=== PATIENT | female | born 1945 | race Caucasian/White ===

== ENCOUNTER 2017-05-22 11:38 | Emergency (ER) | payer MEDICARE ==
[~2017-05-22] VITALS: Ht 157.5 cm; Wt 97.5 kg
[2017-05-22] MEDS ORDERED: SODIUM CHLORIDE 0.9% 1000ML 1,000 ML IV SCH (14:30)
[2017-05-22] MEDS ORDERED: TAMIFLU75 MG PO (15:53)
[2017-05-22 18:33] VITALS: BP 128/67
[2017-05-23] MEDS ORDERED: NORVASC5 MG PO (22:27)
[2017-05-23] MEDS ORDERED: COUMADIN2.5 MG PO (22:59)
[2017-05-23] MEDS ORDERED: LIPITOR20 MG (22:59)
[2017-05-23] MEDS ORDERED: TOPROL XL25 MG PO (22:59)
== END 2017-05-22 14:10 | disposition home or self-care (01) ==
LOC: FSED 11:38
DX: R07.89 Other chest pain (principal); R05 Cough; J11.1 Influenza due to unidentified influenza virus with other respiratory manifestations; I10 Essential (primary) hypertension; E78.5 Hyperlipidemia, unspecified; M79.669 Pain in unspecified lower leg
CPT/HCPCS: 99284

== ENCOUNTER 2017-05-23 22:22 | Emergency (ER) | payer MEDICARE ==
[~2017-05-23] VITALS: Ht 160 cm; Wt 98.0 kg
[~2017-05-23 22:22] MED LIST: TAMIFLU75 MG PO
[2017-05-23] MEDS ORDERED: NORVASC5 MG PO (22:27)
[2017-05-23] MEDS ORDERED: TOPROL XL25 MG PO (22:59)
[2017-05-23] MEDS ORDERED: LIPITOR20 MG (22:59)
[2017-05-23] MEDS ORDERED: COUMADIN2.5 MG PO (22:59)
[2017-05-23] MEDS ORDERED: CLONIDINE HCL 0.1 MG TAB PO ONE (23:00)
[2017-05-23] MEDS ORDERED: DIPHENHYDRAMINE HCL INJ 50 MG/ML VIAL IM ONE (23:00)
== END 2017-05-23 23:36 | disposition home or self-care (01) ==
LOC: FSED 22:22
DX: R05 Cough (principal); J10.1 Influenza due to other identified influenza virus with other respiratory manifestations; I10 Essential (primary) hypertension
CPT/HCPCS: 96372; 99282; J1200

== ENCOUNTER 2017-05-26 11:50 | Observation (INO) | payer MEDICARE ==
[~2017-05-26] VITALS: Ht 157.5 cm; Wt 98.0 kg
[~2017-05-26 11:50] MED LIST changes: +COUMADIN2.5 MG PO; +LIPITOR20 MG; +NORVASC5 MG PO; +TOPROL XL25 MG PO
--- OUTSIDE RECORDS SUMMARY | 2017-05-26 11:52 | XMS REPORT | Continuity of Care Document ---
Author Author [facility] Organization [facility] Address [address] [place] [address] Phone Unavailable Care Team Providers Care Adjunct Professor Name Role Phone NONSTAFF PCP Unavailable Insurance Providers Guarantor Kong Thomas Address [address] [address] Email [email or web address] Payer [employer] Medicare Advantage Policy Number [id number] Subscriber's Name Kong Thomas Relationship 18 Self / Same As Patient Advance Directives Directive Response Recorded Date/Time Does the patient have an advance directive? No 05/22/17 11:44am Problems No problem information available. Medications Current Home Medications Medication Dose Units Route Directions Days Qty Instructions Start Date Amlodipine Besylate (Norvasc) 5 Mg Tab 5 Mg Oral Daily 30 Tab Atorvastatin Calcium (Lipitor) 20 Mg Tablet 20 Mg Daily 30 Tab Metoprolol Succinate (Toprol Xl) 25 Mg Tab.er.24h 25 Mg Oral Daily 30 Tab Oseltamivir Phosphate (Tamiflu) 75 Mg Cap 75 Mg Oral Twice A Day 5 Days 10 Cap 05/22/17 Warfarin Sodium (Coumadin) 2.5 Mg Tablet 2.5 Mg Oral Today At 5:00PM 7 Tab Social History No social history information available. Hospital Discharge Instructions No hospital discharge instruction information available. Plan of Care Discharge Date 05/23/17 11:36pm Disposition HOME, SELF-CARE Condition at Discharge Stable Instructions/Education Provided Hypertension Medication Safety Forms Provided Work/School Excuse Prescriptions See Medication Section Additional Instructions/Education Discussed hypertension and flu treatment. Recommend STOPPING Tamiflu and taking meds for hypertension as directed with Benadryl for sleep. Call MD in AM for follow up instructions. ED warnings given to proceed to hospital if high fever, worsening severe shortness of breath, or chest pain or signs of stroke. All questions answered. Functional Status No functional status information available. Allergies, Adverse Reactions, Alerts Allergen Type Severity Reaction Status Last Updated Ciprofloxacin Allergy Unknown TACHYCARDIA Active 05/22/17 Levofloxacin Allergy Unknown TACHYCARIA Active 05/22/17 Immunizations No immunization information available. Vital Signs Acute Vital Signs Vital Response Date/Time Temperature (Fahrenheit) 98.0 degrees F (97.6 - 99.5) 05/22/2017 6:33pm Pulse Pulse Rate (adult) 68 bpm (60 - 90) 05/22/2017 6:33pm Respiratory Rate 16 bpm (12 - 24) 05/22/2017 6:33pm Blood Pressure 128/67 mm Hg 05/22/2017 6:33pm Height 5 ft 3 in 05/23/2017 10:23pm Weight 216 lb 05/23/2017 10:23pm Body Mass Index 38.3 kg/m^2 05/23/2017 10:23pm Results No relevant diagnostic test, laboratory data and/or discharge summary information available. Procedures No procedure information available. Encounters Encounter Location Arrival/Admit Date Discharge/Depart Date Attending Provider Departed Emergency Room [facility] 05/23/17 10:22pm 05/23 11:36pm BARBY MELTON MD Departed Emergency Room [facility] 05/22/17 11:38am 05/22 2:10pm HINA ROUSE MD
[2017-05-26] MEDS ORDERED: SODIUM CHLORIDE FLUSH 10 ML SYR INJ PRN (12:15)
[2017-05-26] MEDS ORDERED: FAMOTIDINE 20 MG/2 ML VIAL IV ONE (13:00)
[2017-05-26] MEDS ORDERED: PANTOPRAZOLE 40 MG 10ML VIAL IV ONE (13:00)
[2017-05-26 17:00] VITALS: BP 149/74
[2017-05-26 17:29] VITALS: BP 149/79
[2017-05-26 20:38] VITALS: BP 178/73
[2017-05-26 20:39] VITALS: BP 178/73
[2017-05-26] MEDS ORDERED: ATORVASTATIN 20 MG TAB PO SCH (21:00)
[2017-05-26 21:35] VITALS: BP 178/73
[2017-05-27] VITALS (10 sets, daily range): BP systolic 120–183; BP diastolic 56–76
[2017-05-27] MEDS: HYDRALAZINE HCL 20 MG/ML VIAL IV PRN ×2 (01:22→07:08)
[2017-05-27 06:26] LABS: BASOPHILS % 0.6 % (0.0-1.0); EOSINOPHILS # (AUTO) 0.2 (0.0-0.4); EOSINOPHILS % 3.3 % (0.0-6.0); HEMATOCRIT 38.1 % (34.2-44.1); HEMOGLOBIN 12.7 g/dL (12.0-16.0); MEAN CORPUSCULAR HGB CONC 33.3 g/dL (31-35); MONOCYTES # (AUTO) 0.6 (0.2-0.8); NEUTROPHILS # (AUTO) 3.7 (2.1-6.9); NEUTROPHILS % 56.9 % (38.7-80.0); PLATELET COUNT 216 x10e3/uL (140-360); RED BLOOD COUNT 4.38 x10e6/uL (3.6-5.1); RED CELL DISTRIBUTION WIDTH 13.4 % (11.7-14.4)
[2017-05-27 06:47] LABS: CREATINE KINASE MB 0.8 ng/mL (0.00-5.00)
[2017-05-27 08:11] LABS: ALANINE AMINOTRANSFERASE 13 IU/L (0-55); ALBUMIN 3.1 g/dL (3.5-5.0); ALBUMIN/GLOBULIN RATIO 0.9 (0.8-2.0); ALKALINE PHOSPHATASE 65 IU/L (40-150); ANION GAP 13.3 mmol/L (8-16); BLOOD UREA NITROGEN 12 mg/dL (7-26); BUN/CREATININE RATIO 14 (6-25); CALCIUM 8.4 mg/dL (8.4-10.2); CARBON DIOXIDE 23 mmol/L (22-29); CHLORIDE 105 mmol/L (98-107); CREATININE, SERUM 0.87 mg/dL (0.57-1.11); EST GLOMERULAR FILTRATION RATE > 60 ML/MIN (60-); GLUCOSE 111 mg/dL (74-118); POTASSIUM 4.3 mmol/L (3.5-5.1); SODIUM 137 mmol/L (136-145)
[2017-05-27] MEDS: PANTOPRAZOLE SOD 40 MG TABEC PO SCH (08:15)
[2017-05-27 08:50] LABS: INR 2.23; PROTHROMBIN TIME 25.9 seconds (11.9-14.5)
[2017-05-27] MEDS: NIFEDIPINE CR 30 MG TAB PO SCH (09:00)
[2017-05-27] MEDS: METOPROLOL SUCCINATE 50 MG TAB XL PO SCH ×2 (09:01→17:46)
[2017-05-27] MEDS: AMLODIPINE BESYLATE 5 MG TAB PO SCH (10:19)
--- NOTE | 2017-05-27 13:21 | Consultation ---
DATE OF CONSULTATION: May 27, 2017 CARDIOLOGY CONSULTATION REQUESTING PHYSICIAN: Dr. Jovany Levine. REASON FOR CONSULTATION: Atrial fibrillation. HISTORY OF PRESENT ILLNESS: This is a 72-year-old woman with a history of atrial fibrillation, status post ablation and mitral valve repair, who presents with complaints of feeling odd. Patient is not a very good historian, but indicates that she began feeling poorly on Saturday. She was seen in the ER and told she had influenza B. She was given Tamiflu; however, after her second dose of Tamiflu, she began to feel strange with difficulty swallowing and elevated blood pressure. She was therefore started on amlodipine by her epic application coordinator; however, on Saturday, she began to feel palpitations with intermittent episodes of feeling poorly and lightheadedness with what she describes as a wave of heat coming up of her chest. She therefore was instructed to go to the ER by her doctor for further evaluation. She denies any chest pain, shortness of breath, fevers, chills, edema, or orthopnea. REVIEW OF SYSTEMS: Negative except as per HPI. PAST MEDICAL HISTORY 1. Atrial fibrillation, status post ablation. 2. History of mitral valve repair/annuloplasty. PAST SURGICAL HISTORY 1. Shoulder replacement. 2. Carpal tunnel. 3. Mitral valve repair. ALLERGIES: PLEASE SEE EMR. MEDICATIONS: Please see medication list. SOCIAL HISTORY: No tobacco, alcohol, or illicit drugs FAMILY HISTORY: Pertinent for mother with congestive heart failure. PHYSICAL EXAMINATION VITAL SIGNS: Temperature 96.7 degrees, pulse 70, respiratory rate 20, blood pressure 129/60, oxygen saturation 97% on room air. GENERAL: Obese woman, in no acute distress. HEENT: Normocephalic, atraumatic. Pupils are equal. No scleral icterus. NECK: Supple. No thyromegaly or cervical lymphadenopathy. No carotid bruits. LUNGS: Clear to auscultation bilaterally. No wheeze. No crackles. CARDIOVASCULAR: Normal rate, regular rhythm. No murmur. Normal S1 and S2. ABDOMEN: Soft and nontender. EXTREMITIES: No edema. NEUROLOGICAL: Nonfocal exam. LABORATORY DATA: WBC 6.57, hemoglobin 12.7, hematocrit 38.1, platelets 216. Sodium 137, potassium 4.3, chloride 105, CO2 of 23, BUN 12, creatinine 0.87. Troponin 0.001. INR 2.23. TELEMETRY: Sinus rhythm with PVCs. No atrial fibrillation was noted at the time of patient's episode earlier today. IMPRESSION 1. History of atrial fibrillation, status post ablation. 2. Mitral valve repair. 3. Influenza B. 4. Elevated blood pressure. RECOMMENDATIONS: Continue home cardiac medications. Continue monitoring the patient on telemetry. No arrhythmias have been identified to explain the patient's symptoms; however, we will obtain echocardiogram and carotid Dopplers for further evaluation. Patient's further evaluation per primary. Thank you for this consult. We will continue to follow. Job#: [id number] KYLE
[2017-05-27] MEDS: CLONAZEPAM 0.5 MG TAB PO PRN ×2 (16:15→23:15)
[2017-05-27] MEDS ORDERED: CLONIDINE HCL 0.1 MG TAB PO PRN (16:15)
[2017-05-27] MEDS: FAMOTIDINE 20 MG TAB PO SCH (17:46)
[2017-05-27] MEDS: ASPIRIN 325 MG TAB EC PO SCH (17:46)
[2017-05-27] MEDS: WARFARIN SOD 2.5 MG TAB PO SCH (18:12)
[2017-05-27] MEDS ORDERED: IOPAMIDOL 370 MG/ML 200 ML INFUS..BTL INJ ONE (20:47)
[2017-05-27] MEDS ORDERED: SODIUM CHLORIDE 0.9% 50ML 100 ML ONE (20:47)
[2017-05-27] MEDS: ATORVASTATIN 20 MG TAB PO SCH (23:15)
[2017-05-28] VITALS (9 sets, daily range): BP systolic 105–225; BP diastolic 50–97
--- NOTE | 2017-05-28 00:35 | Diagnostic Imaging Report ---
EXAMINATION: CT angio of the neck with contrast. HISTORY:Headache and palpitations. Comparison studies:None Technique: Multidetector helical axial images were acquired through the neck during infusion of iodinated contrast material. Images were reviewed in multiplanar and 3-dimensional format. Intravenous contrast: 100 cc of Isovue 370. Findings: If carotid bulb stenosis is present, stenosis is measured with respect to the distal extracranial internal carotid artery by Nascet criteria. Aortic arch and major vessels: Few, scattered atherosclerotic plaque in the aortic arch and nonstenotic focal hard atherosclerotic plaque at the origin of right brachiocephalic trunk. Common carotid arteries: Patent Cervical carotid bifurcations: Right: Patent. Left :Patent. Internal carotid arteries: Right: Retropharyngeal course of right internal carotid artery at level C3. Left: Patent. Vertebral arteries: Patent, tortuous course of left vertebral artery. Incidental finding: Cervical spine: C3-C4: Moderate left foraminal stenosis due to facet and uncovertebral arthrosis. C4-C5: Mild left foraminal stenosis due to facet and uncovertebral arthrosis. C5-C6: Moderate bilateral foraminal stenosis due to facet and uncovertebral arthrosis. C6-C7: Posterior disc osteophyte complex results in moderate canal stenosis. IMPRESSION: No significant cervical vascular abnormality. Signed by: Dr. Nola Michaels M.D. on 05/28/2017 12:31 AM
[2017-05-28] MEDS ORDERED: SODIUM CHLORIDE 0.9% 50ML 100 ML ONE (02:51)
[2017-05-28] MEDS ORDERED: IOPAMIDOL 370 MG/ML 200 ML INFUS..BTL INJ ONE (02:51)
[2017-05-28 06:39] LABS: BASOPHILS % 0.6 % (0.0-1.0); EOSINOPHILS # (AUTO) 0.2 (0.0-0.4); EOSINOPHILS % 3.1 % (0.0-6.0); HEMATOCRIT 37.4 % (34.2-44.1); HEMOGLOBIN 12.5 g/dL (12.0-16.0); LYMPHOCYTES # (AUTO) 1.9 (1.0-3.2); LYMPHOCYTES % 26.5 % (18.0-39.1); MEAN CORPUSCULAR HEMOGLOBIN 29.3 pg (28-32); MEAN CORPUSCULAR HGB CONC 33.4 g/dL (31-35); MEAN CORPUSCULAR VOLUME 87.6 fL (81-99); MONOCYTES # (AUTO) 0.7 (0.2-0.8); MONOCYTES % 10.2 % (4.4-11.3); NEUTROPHILS # (AUTO) 4.2 (2.1-6.9); NEUTROPHILS % 59.2 % (38.7-80.0); PLATELET COUNT 212 x10e3/uL (140-360); RED BLOOD COUNT 4.27 x10e6/uL (3.6-5.1); RED CELL DISTRIBUTION WIDTH 13.9 % (11.7-14.4)
[2017-05-28 06:57] LABS: BLOOD UREA NITROGEN 13 mg/dL (7-26); BUN/CREATININE RATIO 15 (6-25); CALCIUM 8.2 mg/dL (8.4-10.2); CARBON DIOXIDE 24 mmol/L (22-29); CHLORIDE 105 mmol/L (98-107); CHOL/HDL RATIO 3.1 (3.0-3.6); CHOLESTEROL 135 MD/DL (0-199); CREATININE, SERUM 0.86 mg/dL (0.57-1.11); EST GLOMERULAR FILTRATION RATE > 60 ML/MIN (60-); GLUCOSE 93 mg/dL (74-118); HDL CHOLESTEROL 43 MG/DL (40-60); LDL CHOLESTEROL 69 MG/DL (60-130); MAGNESIUM 1.8 MG/DL (1.3-2.1); SODIUM 136 mmol/L (136-145); TRIGLYCERIDES 113 MG/DL (0-149)
[2017-05-28 07:19] LABS: FREE T4 (FREE THYROXINE) 1.12 ng/dL (0.9-1.8)
[2017-05-28] MEDS: PANTOPRAZOLE SOD 40 MG TABEC PO SCH (07:30)
[2017-05-28] MEDS: NIFEDIPINE CR 30 MG TAB PO SCH (09:00)
[2017-05-28] MEDS: AMLODIPINE BESYLATE 5 MG TAB PO SCH (09:00)
[2017-05-28] MEDS: ASPIRIN 325 MG TAB EC PO SCH (09:10)
[2017-05-28] MEDS: FAMOTIDINE 20 MG TAB PO SCH ×2 (09:10→16:54)
[2017-05-28] MEDS: METOPROLOL SUCCINATE 50 MG TAB XL PO SCH (09:29)
--- NOTE | 2017-05-28 15:56 | Progress Note ---
DATE: May 28, 2017 CARDIOLOGY PROGRESS NOTE: SUBJECTIVE: Ms. Mensah feels well. She has had no further episodes. OBJECTIVE VITAL SIGNS: Afebrile. Heart rate 77. Blood pressure 117/56. O2 sat is 97%. CARDIOVASCULAR: Regular rhythm. Systolic and diastolic murmur. S4 gallop. LUNGS: Clear to auscultation bilaterally. Serum creatinine is normal. CT of the neck shows no evidence of vascular disease. Echocardiogram shows a normally functioning mitral valve prosthesis, normal ejection fraction. Telemetry shows sinus rhythm. ASSESSMENT: Paroxysmal atrial fibrillation, symptomatic. PLAN: The patient is feeling better. She does not have any carotid disease. Current outpatient medications are appropriate including her beta paul and warfarin, which should be continued. She is stable for discharge and will follow up with her [facility] doctors. I thank Dr. Levine for this consultation. Job#: [id number] EV
[2017-05-28] MEDS: WARFARIN SOD 2.5 MG TAB PO SCH (16:54)
[2017-05-28] MEDS: METOPROLOL SUCCINATE 25 MG TAB XL PO SCH (16:54)
[2017-05-28 17:17] LABS: ANION GAP 12.3 mmol/L (8-16); BLOOD UREA NITROGEN 17 mg/dL (7-26); BUN/CREATININE RATIO 20 (6-25); CALCIUM 8.2 mg/dL (8.4-10.2); CARBON DIOXIDE 24 mmol/L (22-29); CHLORIDE 104 mmol/L (98-107); CREATININE, SERUM 0.84 mg/dL (0.57-1.11); EST GLOMERULAR FILTRATION RATE > 60 ML/MIN (60-); GLUCOSE 94 mg/dL (74-118); MAGNESIUM 1.9 MG/DL (1.3-2.1); POTASSIUM 4.3 mmol/L (3.5-5.1); SODIUM 136 mmol/L (136-145)
[2017-05-28] MEDS: ATORVASTATIN 20 MG TAB PO SCH (19:37)
[2017-05-28] MEDS: CLONAZEPAM 0.5 MG TAB PO PRN (19:37)
--- NOTE | 2017-05-28 19:57 | History and Physical ---
PRIMARY CARE PROVIDER: Dr. Ronn Esteves at the [facility]. CHIEF COMPLAINT: Weak and dizzy and near syncope. HISTORY OF PRESENT ILLNESS: Ms. Mensah is a 72-year-old lady who for the past week has been having episodes of weakness and dizziness and near syncope, feeling like she is just going to fade away, that starts off with flushing and also includes labile blood pressure. Patient was seen a week ago in clinic and was diagnosed with influenza and was given Tamiflu which she took a couple of doses of. She had a hacking cough at the time which went away after a couple of days. She has not had upper respiratory symptoms since then but has had these kind of vague feelings of not feeling well and weak, dizzy and lightheaded, near syncope. REVIEW OF SYSTEMS: She denies fever, chills or weight loss. She denies sinus congestion or sore throat. She denies chest pain, possibly having some palpitations. She denies shortness of breath or wheezing or cough. She denies abdominal pain, nausea, vomiting or melena. She denied dysuria or flank pain. She denies rash or pruritus. She denies joint pain or swelling. She denies bleeding or bruising. She denies headache, vertigo or loss of consciousness, but does feel generally weak. She denies depression, agitation, homicidal or suicidal ideation. PAST MEDICAL HISTORY: Significant for chronic atrial fibrillation status post ablation 3 years ago. She also had a mitral valve annuloplasty done a few years ago. She has had a shoulder replacement and carpal tunnel surgery. REGULAR MEDICATIONS: Metoprolol 50 mg twice daily. Amlodipine 5 mg daily. Lipitor 20 mg at bedtime. Warfarin 2.5 mg daily and Nexium 20 mg q.a.m. ALLERGIES: SHE HAS A STATED ALLERGY TO LEVAQUIN AND CIPROFLOXACIN. FAMILY HISTORY: Unremarkable. SOCIAL HISTORY: The patient is . Syriac is her primary language. She does not smoke, drink or use illegal drugs. She is generally independently functioning. PHYSICAL EXAM: PSYCHIATRIC: She is alert and oriented times 3 with normal mood and affect. CONSTITUTIONAL: She has a normal body habitus. Is in no acute distress. VITAL SIGNS: Blood pressure 121/59. Pulse 69 and regular. Respiratory rate 21. O2 sat 96% on room air. Temperature 96.6. HEENT: Head is atraumatic. Eyes are anicteric with clear conjunctivae. Ears and nares are without erythema or discharge. Oropharynx is clear. NECK: Is supple with no mass or thyromegaly. LYMPHATIC SYSTEM: She has no palpable cervical, axillary or inguinal adenopathy. CARDIOVASCULAR: Her heart has a regular rate and rhythm without murmur or extra heart sounds. No carotid bruit. She has no peripheral edema. Has weak dorsal pedal pulses. RESPIRATORY: Clear to auscultation and percussion with normal respiratory effort. GASTROINTESTINAL: Abdomen is soft without organomegaly, masses or tenderness. Normal bowel sounds present. CUTANEOUS: Her skin is warm and dry to touch with no rash or skin breakdown. MUSCULOSKELETAL: Joints are in normal alignment without erythema or swelling. Has no calf tenderness. NEUROLOGIC: Exam is nonfocal with intact cranial nerves and no motor or sensory deficits. DIAGNOSTIC STUDIES: Echocardiogram shows mitral valve area 1.3 and has mitral annular calcification, but appears to be functioning well. Her ejection fraction is 60% to 65%. Carotid Doppler shows marked narrowing of the right internal and external carotid artery. Troponin 0.001. Her chemistry profile shows normal electrolytes. CO2 23. Creatinine 0.87. BUN 12. Glucose 111. Calcium 8.4. Transaminases, bilirubin and alk phos are normal. CBC shows a white count of 6.57 with a normal differential. Hemoglobin 12.7, hematocrit 38.1 and platelet count of 216,000. Coags are normal. IMPRESSION AND PLAN 1. Near syncope. Possibly due to carotid narrowing. Will order a CT angiogram of the neck and then start patient on aspirin. 2. History of atrial fibrillation and some vague history of feeling of palpitations. The patient will continue on her metoprolol and Coumadin. Will consult cardiology for their evaluation. 3. Labile hypertension. The patient is on Norvasc, metoprolol and p.r.n. clonidine. 4. Anxiety. Will give the patient p.r.n. clonazepam. 5. For prophylaxis the patient is already on Coumadin for DVT prophylaxis and stroke prophylaxis. Will add Pepcid for GI prophylaxis. Job#: [id number]
[2017-05-28] MEDS ORDERED: GUAIFENESIN 600MG/DEXTROMETHORPHAN 30MG TABSR PO PRN (21:30)
[2017-05-29] VITALS: BP 120/55
--- NOTE | 2017-05-29 00:33 | Progress Note ---
DATE: PCP: Bj. BUILDING CONSTRUCTION ESTIMATOR: Dr. Nick Carter, cardiology. CHIEF COMPLAINT: Atrial fibrillation, atrial flutter on admission. ALLERGIES: LEVOFLOXACIN AND CIPROFLOXACIN. DIET: Cardiac diet. SUBJECTIVE: Patient reports she has been feeling better, although patient reports warm heat sensations from the breast down and feels wanting to pass out when her blood pressure increases. Patient has , son-in-law, and daughter at bedside. I have discussed CT, CTA of the neck with patient and family members as the result stated as no significant cervical vascular abnormalities. Findings, stenosis is measured with respect to the distal extracranial internal carotid artery by NASCET criteria. I have also discussed the vital signs which are as follows: MEDICATIONS: Please see MAR. OBJECTIVE: VITAL SIGNS: Temperature 98.1, pulse 72, blood pressure at 128/60, respirations 18. GENERAL: Patient is awake, alert, oriented x3. Patient is lying in bed. LUNGS: Clear to auscultation bilaterally with normal respiratory effort. HEENT: Extraocular muscles are intact. NECK: Supple. CARDIOVASCULAR: Regular rate and rhythm at this time. ABDOMEN: Soft. Bowel sounds are present. It is nontender and nondistended. NEUROLOGICAL: Nonfocal. EXTREMITIES: No calf tenderness. LABS: Sodium 136, potassium 4.0, chloride is 105, CO2 24, BUN 13, creatinine 0.86. White count 7.14, hemoglobin 12.5, hematocrit 37.4, platelets 212,000. DIAGNOSES: 1. Near syncope. CT of the neck has been discussed with patient and family as well as with the nurse. 2. History of atrial fibrillation. Will continue on metoprolol. Will await sql data analyst recommendation. Will continue on blood thinners. 3. Labile hypertension. Continue on nifedipine, clonidine, amlodipine, and metoprolol. 4. Anxiety. Will continue on clonazepam p.r.n. Labs set were done and I had mentioned to the patient that I would to see if they were done, if not I would order them, so patient was made aware of the TSH that was done and at 0.87, free T4 is 1.12. Her BNP is 93. Triglycerides 113, cholesterol 135, LDL 69, HDL 43. Calcium 8.2, magnesium 1.8. Dictated by Guru Engel NP Job#: [id number]
[2017-05-29 04:00] VITALS: BP 113/55
[2017-05-29] MEDS: PANTOPRAZOLE SOD 40 MG TABEC PO SCH (07:30)
[2017-05-29] MEDS: FAMOTIDINE 20 MG TAB PO SCH (07:30)
[2017-05-29 07:56] VITALS: BP 136/65
[2017-05-29] MEDS: ASPIRIN 325 MG TAB EC PO SCH (08:31)
[2017-05-29] MEDS: AMLODIPINE BESYLATE 5 MG TAB PO SCH (08:32)
[2017-05-29] MEDS: NIFEDIPINE CR 30 MG TAB PO SCH (08:32)
[2017-05-29] MEDS: METOPROLOL SUCCINATE 25 MG TAB XL PO SCH (08:54)
[2017-05-29 11:35] VITALS: BP 123/59
[2017-05-29 11:48] LABS: INR 2.11
[2017-05-29 11:51] LABS: PROTHROMBIN TIME 24.8 seconds (11.9-14.5)
[2017-05-29] MEDS ORDERED: MUCINEX DM ER1 EACH PO (12:06)
[2017-05-29] MEDS ORDERED: TOPROL XL25 MG PO (12:06)
[2017-05-29] MEDS ORDERED: FAMOTIDINE20 MG PO (12:06)
[2017-05-29] MEDS ORDERED: ASPIRIN ENTERI325 MG PO (12:06)
[2017-05-29] MEDS ORDERED: PROTONIX40 MG/ML PO (12:06)
[2017-05-29] MEDS ORDERED: CLONAZEPAM0.5 MG PO (12:06)
[2017-05-29] MEDS ORDERED: NIFEDIPINE ER30 M1 PO (12:06)
--- NOTE | 2017-05-29 14:55 | Progress Note ---
DATE: May 29, 2017 CARDIOLOGY PROGRESS NOTE SUBJECTIVE: Patient denies chest pain or shortness of breath. She had another episode of heat traveling up her chest again last night, for which discharge was held. OBJECTIVE VITAL SIGNS: Temperature 97 degrees, pulse 63, blood pressure 123/59, oxygen saturation 95% on room air. GENERAL: Awake, alert, in no acute distress. LUNGS: Clear to auscultation bilaterally. No wheezes or crackles. CARDIOVASCULAR: Normal rate, regular rhythm. No murmur. Normal S1 and S2. ABDOMEN: Soft, nontender. EXTREMITIES: No edema. CARDIAC MEDICATIONS 1. Metoprolol succinate 25 mg p.o. b.i.d. 2. Atorvastatin 20 mg p.o. nightly. 3. Warfarin 2.5 mg p.o. daily. 4. Aspirin 325 mg p.o. daily. LABS: INR 2.11. TELEMETRY: Normal sinus rhythm. IMPRESSION 1. Paroxysmal atrial fibrillation with prior ablation. 2. Mitral valve repair. 3. Influenza B. 4. Elevated blood pressure. RECOMMENDATIONS: Patient's metoprolol succinate was increased to 75 mg p.o. b.i.d. Patient's blood pressure has for the most part been controlled. Would not discharge patient on antihypertensive therapy other than metoprolol. Patient has a followup appointment already scheduled with her outpatient dipper operator, Dr. Goel, which she will keep for Saturday. Continue current cardiac medications otherwise. Thank you for this consult. We will continue to follow. Job#: [id number] PRAVIN
== END 2017-05-29 13:43 | disposition home or self-care (01) ==
LOC: FSED 11:50 → IMCU 15:49
PROVIDERS: ADMIT Internal Medicine; ATTEND Internal Medicine
DX: R55 Syncope and collapse (principal); R00.2 Palpitations; I48.0 Paroxysmal atrial fibrillation; I48.92 Unspecified atrial flutter; Z79.01 Long term (current) use of anticoagulants; F41.9 Anxiety disorder, unspecified; I10 Essential (primary) hypertension; J09.X2 Influenza due to identified novel influenza A virus with other respiratory manifestations; Z95.2 Presence of prosthetic heart valve; Z88.1 Allergy status to other antibiotic agents
CPT/HCPCS: 36415 ×3; 70450; 70498; 71020; 80048; 80053 ×2; 80061; 82550; 82553 ×2; 82948; 83735; 83880; 84439; 84443; 84484 ×2; 85025 ×3; 85610 ×3; 93005; 93306; 93880; 97139; 99284; G0378 ×4; J0360; Q9967 ×2; 71046

== ENCOUNTER 2020-06-06 13:17 | Emergency (ER) | payer MEDICARE ==
[~2020-06-06] VITALS: Ht 154.9 cm; Wt 90.7 kg
[~2020-06-06 13:17] MED LIST changes: +ASPIRIN ENTERI325 MG PO; +CLONAZEPAM0.5 MG PO; +FAMOTIDINE20 MG PO; +MUCINEX DM ER1 EACH PO; +NIFEDIPINE ER30 M1 PO; +PROTONIX40 MG/ML PO
[2020-06-06] MEDS ORDERED: SODIUM CHLORIDE FLUSH 10 ML SYR INJ PRN (13:45)
[2020-06-06] MEDS ORDERED: MACROBID 100 M100 MG PO (15:12)
[2020-06-06 15:20] VITALS: BP 148/68
== END 2020-06-06 15:29 | disposition home or self-care (01) ==
LOC: FSED 13:35
DX: R53.81 Other malaise (principal); T50.Z95A Adverse effect of other vaccines and biological substances, initial encounter; N39.0 Urinary tract infection, site not specified; I50.9 Heart failure, unspecified; I10 Essential (primary) hypertension; I48.91 Unspecified atrial fibrillation; E78.5 Hyperlipidemia, unspecified
CPT/HCPCS: 71045; 80053; 82553; 83880; 84484; 85025; 85379; 85610; 87086; 99284

== ENCOUNTER 2022-05-16 15:05 | Emergency (ER) | payer MEDICARE ==
[~2022-05-16] VITALS: Ht 154.9 cm; Wt 90.4 kg
[~2022-05-16 15:05] MED LIST changes: +MACROBID 100 M100 MG PO
[2022-05-16] MEDS ORDERED: BUMETANIDE1 MG PO (15:51)
[2022-05-16] MEDS ORDERED: POTASSIUM CHLO20 ME1 PO (15:51)
[2022-05-16] MEDS ORDERED: FISH OIL 1,0001 EAC6 (15:51)
[2022-05-16] MEDS ORDERED: WARFARIN SODIU2.5 MG PO (15:51)
[2022-05-16] MEDS ORDERED: VITAMIN C1000 MG PO ×2 (15:51)
[2022-05-16] MEDS ORDERED: ZINC16.7 MG (15:51)
[2022-05-16] MEDS ORDERED: METOPROLOL SUCC25 MG PO (15:51)
[2022-05-16] MEDS ORDERED: VIACTIV 650 MG1 EACH (15:51)
[2022-05-16] MEDS ORDERED: IBUPROFEN200 MG PO (15:53)
[2022-05-16] MEDS ORDERED: ACETAMINOPHEN500 MG PO (16:12)
[2022-05-16] MEDS ORDERED: DEXAMETHASONE SOD PHOS 10 MG/1 ML VIAL IM ONE (16:15)
[2022-05-16] MEDS ORDERED: DEXAMETHASONE SOD PHOS INJ 4 MG/ML SDV ONE (16:26)
== END 2022-05-16 16:24 | disposition home or self-care (01) ==
LOC: FSED 15:13
DX: M25.562 Pain in left knee (principal); M12.862 Other specific arthropathies, not elsewhere classified, left knee; I10 Essential (primary) hypertension; I50.9 Heart failure, unspecified; I48.91 Unspecified atrial fibrillation; E78.5 Hyperlipidemia, unspecified
CPT/HCPCS: 73560; 96372; 99283; J1100

== ENCOUNTER 2022-05-18 11:58 | Observation (INO) | payer MEDICARE ==
[~2022-05-18] VITALS: Ht 154.9 cm; Wt 89.4 kg
[~2022-05-18 11:58] MED LIST changes: +ACETAMINOPHEN500 MG PO; +BUMETANIDE1 MG PO; +FISH OIL 1,0001 EAC6; +IBUPROFEN200 MG PO; +METOPROLOL SUCC25 MG PO; +POTASSIUM CHLO20 ME1 PO; +VIACTIV 650 MG1 EACH; +VITAMIN C1000 MG PO; +WARFARIN SODIU2.5 MG PO; +ZINC16.7 MG
[2022-05-18] MEDS ORDERED: ONDANSETRON HCL INJ 2MG/ML 2ML 2 MG/ML VIAL IV PRN (13:00)
[2022-05-18] MEDS ORDERED: ACETAMINOPHEN 325 MG TAB PO PRN (13:00)
[2022-05-18] MEDS ORDERED: ASPIRIN 81 MG CHEW TAB PO ONE (13:00)
[2022-05-18] MEDS ORDERED: DIPHENHYDRAMINE HCL INJ 50 MG/ML VIAL IV PRN (13:00)
[2022-05-18] MEDS ORDERED: ZOLPIDEM TARTRATE 5 MG TAB PO PRN (13:00)
[2022-05-18] MEDS ORDERED: ENALAPRILAT IV INJ 1.25 MG/ML VIAL IV PRN (13:00)
[2022-05-18 15:13] VITALS: BP 156/61
[2022-05-18 15:32] VITALS: BP 156/61
[2022-05-18] MEDS ORDERED: LIPITOR20 MG PO (15:42)
[2022-05-18] MEDS ORDERED: METOPROLOL TART25 MG PO (15:42)
[2022-05-18] MEDS ORDERED: WARFARIN SODIUM3 MG PO ×2 (15:43→17:18)
[2022-05-18] MEDS ORDERED: POTASSIUM CHLO10 ME1 PO (15:44)
[2022-05-18] MEDS ORDERED: VITAMIN D312.5 MCG/5 PO (15:46)
[2022-05-18] MEDS ORDERED: BUMETANIDE1 MG PO ×2 (15:49→17:08)
[2022-05-18] MEDS ORDERED: CLONIDINE HCL 0.1 MG TAB PO PRN (16:30)
[2022-05-18 16:56] VITALS: BP 156/61
[2022-05-18] MEDS ORDERED: VIACTIV 650 MG1 EACH PO ×2 (17:11→17:13)
[2022-05-18 19:15] VITALS: BP 151/52
[2022-05-18 19:17] LABS: CREATINE KINASE MB 1.6 ng/mL (0-5.0)
[2022-05-18 19:53] LABS: FREE THYROXINE INDEX 2.3889 (1.4-3.8); THYROID STIMULATING HORMONE 1.53 uIU/mL (0.350-4.940)
[2022-05-18 21:26] VITALS: BP 151/52
[2022-05-19 00:33] VITALS: BP 132/52
[2022-05-19 05:22] VITALS: BP 144/59
[2022-05-19 06:40] LABS: BASOPHILS # (AUTO) 0.1 (0.0-0.1); BASOPHILS % 1.2 % (0.0-1.0); EOSINOPHILS # (AUTO) 0.3 (0.0-0.4); EOSINOPHILS % 3.7 % (0.0-6.0); HEMATOCRIT 38.2 % (34.2-44.1); HEMOGLOBIN 11.7 g/dL (12.0-16.0); LYMPHOCYTES # (AUTO) 2.2 (1.0-3.2); LYMPHOCYTES % 31.5 % (18.0-39.1); MEAN CORPUSCULAR HEMOGLOBIN 28.6 pg (28-32); MEAN CORPUSCULAR HGB CONC 30.6 g/dL (31-35); MEAN CORPUSCULAR VOLUME 93.4 fL (81-99); MONOCYTES # (AUTO) 0.7 (0.2-0.8); MONOCYTES % 10.6 % (4.4-11.3); NEUTROPHILS # (AUTO) 3.6 (2.1-6.9); NEUTROPHILS % 52.7 % (38.7-80.0); PLATELET COUNT 206 x10e3/uL (140-360); RED BLOOD COUNT 4.09 x10e6/uL (3.6-5.1); RED CELL DISTRIBUTION WIDTH 14.6 % (11.7-14.4)
[2022-05-19 06:57] LABS: CHOL/HDL RATIO 3.1 (3.0-3.6)
[2022-05-19 06:59] LABS: ALBUMIN/GLOBULIN RATIO 0.9 (0.8-2.0); ANION GAP 12.9 mmol/L (8-16); CALCIUM 8.2 mg/dL (8.4-10.2); CREATININE, SERUM 0.91 mg/dL (0.57-1.11); POTASSIUM 3.9 mmol/L (3.5-5.1)
[2022-05-19 07:07] LABS: CREATINE KINASE MB 1.1 ng/mL (0-5.0)
[2022-05-19 07:28] VITALS: BP 150/52
[2022-05-19] MEDS ORDERED: POTASSIUM CHLORIDE 20 MEQ TAB CR PO SCH (09:00)
[2022-05-19] MEDS ORDERED: ATORVASTATIN 20 MG TAB PO SCH (09:00)
[2022-05-19 11:32] VITALS: BP 177/62
== END 2022-05-19 13:17 | disposition home or self-care (01) ==
LOC: FSED 12:02 → ERHOLD 13:03 → MED/SURG3 13:51
PROVIDERS: ADMIT Internal Medicine; ATTEND Internal Medicine
DX: R00.1 Bradycardia, unspecified (principal); I48.91 Unspecified atrial fibrillation; I34.0 Nonrheumatic mitral (valve) insufficiency; R53.81 Other malaise; I11.0 Hypertensive heart disease with heart failure; I50.30 Unspecified diastolic (congestive) heart failure; E78.00 Pure hypercholesterolemia, unspecified; G47.30 Sleep apnea, unspecified; M06.9 Rheumatoid arthritis, unspecified; M17.12 Unilateral primary osteoarthritis, left knee; E66.9 Obesity, unspecified; Z20.822 Contact with and (suspected) exposure to COVID-19; Z88.1 Allergy status to other antibiotic agents; Z88.8 Allergy status to other drugs, medicaments and biological substances; Z79.01 Long term (current) use of anticoagulants; Z79.899 Other long term (current) drug therapy; Z68.37 Body mass index [BMI] 37.0-37.9, adult; Z95.4 Presence of other heart-valve replacement
CPT/HCPCS: 36415 ×2; 71045; 80053 ×2; 80061; 82550 ×2; 82553 ×2; 82948; 84436; 84443; 84479; 84484 ×2; 85025 ×2; 93005; 93306; 94799 ×2; 99284; G0378 ×2; U0002

== ENCOUNTER 2024-07-04 10:29 | Emergency (ER) | payer MEDICARE ==
[~2024-07-04] VITALS: Ht 157.5 cm; Wt 92.2 kg
[~2024-07-04 10:29] MED LIST changes: +LIPITOR20 MG PO; +METOPROLOL TART25 MG PO; +POTASSIUM CHLO10 ME1 PO; +VIACTIV 650 MG1 EACH PO; +VITAMIN D312.5 MCG/5 PO; +WARFARIN SODIUM3 MG PO
[2024-07-04] MEDS ORDERED: TYLENOL325 MG PO (11:06)
[2024-07-04] MEDS ORDERED: ULTRAM 50MG50 MG PO (11:26)
[2024-07-04] MEDS ORDERED: PREDNISONE20 MG PO (11:26)
[2024-07-04 11:29] VITALS: PULSE 71; RESP 18; TEMP 97.8; O2SAT 96
== END 2024-07-04 11:35 | disposition home or self-care (01) ==
LOC: FSED 10:34
DX: M25.532 Pain in left wrist (principal); M25.432 Effusion, left wrist; M19.032 Primary osteoarthritis, left wrist; I10 Essential (primary) hypertension; I50.9 Heart failure, unspecified; I48.91 Unspecified atrial fibrillation; I25.10 Atherosclerotic heart disease of native coronary artery without angina pectoris; E78.5 Hyperlipidemia, unspecified; Z95.1 Presence of aortocoronary bypass graft
CPT/HCPCS: 99283